=== PATIENT | male | born 1970 | race Caucasian/White ===

== ENCOUNTER → 2018-01-23 | Outpatient (CLI) | payer OTHER, SELFPAY ==
[2018-01-25 19:08] LABS: FREE TESTOSTERONE(DIRECT) 9.1 pg/mL (6.8-21.5); TESTOSTERONE, SERUM 879 ng/dL (264-916)
== END | disposition home or self-care (01) ==
LOC: LAB SHORT 17:34 → LAB 17:34
PROVIDERS: Hospitalist
DX: E11.3213 Type 2 diabetes mellitus with mild nonproliferative diabetic retinopathy with macular edema, bilateral (principal); E55.9 Vitamin D deficiency, unspecified; F52.21 Male erectile disorder; R53.83 Other fatigue
CPT/HCPCS: 82306; 82607; 83036; 84402; 84403

== ENCOUNTER 2022-04-06 09:42 | Inpatient (IN) | payer OTHER ==
[~2022-04-06] VITALS: Ht 180.3 cm; Wt 95.4 kg
[~2022-04-06 09:42] MED LIST: INSULANPEN SC; Metformin HCl500 MG PO; Novolog Fl100 UNIT/1 SC; SILDENAFIL20 MG PO
[2022-04-06 10:25] LABS: Base Excess Venous -27.5 mmol/L; Bicarbonate Venous 7.1 mmol/L (24.0-30.0); PCO2 Venous 24.6 mmHg (38-42); pH Blood Venous 6.92 (7.34-7.37)
[2022-04-06 10:25] LABS: BASOPHILS PERCENT AUTO 0 % (0-2); Hematocrit 41.3 % (37.0-53.0); Hemoglobin 13.4 g/dL (13.5-17.5); MONOCYTES PERCENT AUTO 10 % (4-13); Mean Corpuscular HGB 32.4 pg (26.0-34.0); Mean Corpuscular HGB Conc 32.4 g/dL (31.5-36.5); Mean Corpuscular Volume 100 fL (80-100); Mean Platelet Volume 10.4 fL (9.1-12.4); Platelet Count 309 K/mm3 (150-400); RDW Standard Deviation 44.7 fL (35.1-46.3); Red Blood Cell Count 4.13 M/mm3 (4.30-5.90)
[2022-04-06 11:06] LABS: Magnesium, Blood 2.8 mg/dL (1.6-2.4)
[2022-04-06 11:25] LABS: Influenza A, PCR NEGATIVE (NEGATIVE); Influenza B, PCR NEGATIVE (NEGATIVE); Resp Syncytial Virus, PCR NEGATIVE (NEGATIVE); SARS-Cov-2 (COVID-19) PCR, MMC NEGATIVE (NEGATIVE)
[2022-04-06 11:26] LABS: BASOPHILS ABSOLUTE AUTO 0.04 K/mm3 (0.00-0.23); EOSINOPHILS ABSOLUTE AUTO 0.01 K/mm3 (0.00-0.68); EOSINOPHILS PERCENT AUTO 0 % (0-6); IMMATURE GRAN ABSOLUTE AUTO 0.15 K/mm3 (0.00-0.10); IMMATURE GRAN PERCENT AUTO 1 % (0-1); LYMPHOCYTES ABSOLUTE AUTO 1.73 K/mm3 (0.84-5.20); LYMPHOCYTES PERCENT AUTO 8 % (21-46); MONOCYTES ABSOLUTE AUTO 2.39 K/mm3 (0.16-1.47); NEUTROPHILS ABSOLUTE AUTO 18.57 K/mm3 (1.96-9.15); NEUTROPHILS PERCENT AUTO 81 % (41-73)
[2022-04-06 11:27] LABS: Alanine Aminotransfer (ALT/SGP 32 U/L (12-78); Albumin, Blood 3.6 g/dL (3.4-5.0); Albumin/Globulin Ratio 1.1 (0.8-1.8); Alk Phos 138 U/L (50-136); Anion Gap 37 mmol/L (6-16); Aspartate Aminotrans (AST/SGOT 21 U/L (12-37); Bilirubin, Total 0.5 mg/dL (0.1-1.0); Blood Urea Nitrogen 64 mg/dL (8-24); Bun/Creatinine Ratio 22.3 (12.0-20.0); CO2, Blood 5 mmol/L (21-32); Calcium, Blood 7.9 mg/dL (8.5-10.1); Chloride, Blood 80 mmol/L (98-108); Creatinine, Blood 2.87 mg/dL (0.60-1.20); Globulin, Blood 3.3 g/dL (2.2-4.0); Glomerular Filtration Rate 25 (60-); Glucose, Blood 1040 mg/dL (70-99); Potassium, Blood 6.3 mmol/L (3.5-5.5); Sodium, Blood 122 mmol/L (136-145); Total Protein, Blood 6.9 g/dL (6.4-8.2)
[2022-04-06 11:47] LABS: Beta-hydroxybutyrate >138.0 mg/dL (0.2-2.8)
[2022-04-06 13:36] LABS: Glucose, Blood 914 mg/dL (70-99)
[2022-04-06 14:53] LABS: Glucose, Blood 768 mg/dL (70-99)
[2022-04-06 16:34] LABS: Glucose, Blood 660 mg/dL (70-99)
[2022-04-06 17:04] LABS: Bun/Creatinine Ratio 23.3 (12.0-20.0); Calcium, Blood 7.7 mg/dL (8.5-10.1); Creatinine, Blood 2.92 mg/dL (0.60-1.20); Potassium, Blood 4.8 mmol/L (3.5-5.5)
[2022-04-06 17:20] LABS: Source, Urine Clean Catch
[2022-04-06 17:27] LABS: Appearance, Urine Clear (Clear); Bilirubin, Urine Neg (Neg); Blood, Urine 2+ (Neg); Color, Urine Yellow (P-Yellow); Glucose Qualitative, Urine 4+ (Neg); Ketones, Urine 4+ (Neg); Leukocyte Esterase, Urine Neg (Neg); Nitrite, Urine Neg (Neg); Protein, Urine 1+ (Neg); Urobilinogen, Urine NORM (Normal)
[2022-04-06 17:31] LABS: Glucose, Blood 578 mg/dL (70-99)
[2022-04-06 17:43] LABS: U Amphetamine Screen Not Detected; U Barbituate Screen Not Detected; U Benzodiazapine Screen Not Detected; U Cannabinoids Screen Not Detected; U Cocaine Screen Not Detected; U Methadone Screen Not Detected; U Methamphetamine Screen Not Detected; U Opiates Screen Not Detected; U Phencyclidine Screen Not Detected
[2022-04-06 17:44] LABS: U Buprenorphine Screen Not Detected; U Oxycodone Screen Not Detected; U Propoxyphene Screen Not Detected
[2022-04-06 17:53] LABS: Bacteria Few /hpf; Squamous Epithelial Cells Few /hpf (Few)
--- NOTE | 2022-04-06 18:08 | NUR ---
SHIFT SUMMARY PT ARRIVED TO ICU ROOM 3 AT 14OO VIA ER BED. PT IS ALERT, ORIENTED, AND ANSWERS QUESTIONS APPROPRIATELY WHEN AWAKE. PT HAS BEEN RESTING QUIETLY THIS AFTERNOON, BUT REMAINS EASY TO AWAKEN. PT HAS DENIED PAIN, DISCOMFORT OR NAUSEA. VITAL SIGNS HAVE REMAINED STABLE. PT ON ROOM AIR. POWERGLIDE PLACED TO JOSEPH. INSULIN GTT INFUSING AT 3 UNITS/HR AT THIS TIME, AND NS AT 350 ML/HR. PT USED URINAL TO VOID THIS EVENING. PT SPOUSE AT BEDSIDE AT THIS TIME. WILL CONTINUE TO MONITOR AND REPORT OFF TO ONCOMING RN.
--- NOTE | 2022-04-06 19:00 | NUR ---
ASSUMED CARE PT ALERT AND TALKING WITH STAFF. DROWSY BUT AWAKENS EASILY TO VERBAL STIMULI. INSULIN GTT AT 3UNITS/HR. NS AT 350ML/HR. C/O OF SORE THROAT AND MINIMAL COUGH. VOIDING USING URINAL.
[2022-04-06 20:35] LABS: Bun/Creatinine Ratio 25.9 (12.0-20.0); Creatinine, Blood 2.47 mg/dL (0.60-1.20); Potassium, Blood 4.8 mmol/L (3.5-5.5)
[2022-04-07 01:34] LABS: Bun/Creatinine Ratio 29.7 (12.0-20.0); Calcium, Blood 7.7 mg/dL (8.5-10.1); Creatinine, Blood 1.95 mg/dL (0.60-1.20); Potassium, Blood 4.3 mmol/L (3.5-5.5)
--- NOTE | 2022-04-07 02:00 | NUR ---
CALL TO MD WARNER 254. CALL MADE TO DR RAMAN REGARDING CHANGING FLUIDS TO D5 1/2 NS. ORDER RECEIVED WITH RATE OF 125ML/HR.
--- NOTE | 2022-04-07 05:38 | NUR ---
SHIFT SUMMARY NO ACUTE EVENTS OVERNIGHT. PT SWITCHED TO D5 1/2NS 125ML/HR AT 0200. SEE PREVIOUS NOTE. ON RA WITH SPO2 GREATER THAN 92%. INSULIN GTT AT 4UNITS/HR WITH CBG 200-250. SEE FLOWSHEET FOR TITRATIONS. PT VOIDS IN URINAL. DID NOT GET OOB T/O SHIFT. VSS.
[2022-04-07 05:39] LABS: BASOPHILS ABSOLUTE AUTO 0.01 K/mm3 (0.00-0.23); BASOPHILS PERCENT AUTO 0 % (0-2); EOSINOPHILS PERCENT AUTO 0 % (0-6); Hematocrit 32.1 % (37.0-53.0); Hemoglobin 11.4 g/dL (13.5-17.5); IMMATURE GRAN ABSOLUTE AUTO 0.02 K/mm3 (0.00-0.10); IMMATURE GRAN PERCENT AUTO 0 % (0-1); LYMPHOCYTES ABSOLUTE AUTO 0.55 K/mm3 (0.84-5.20); LYMPHOCYTES PERCENT AUTO 6 % (21-46); MONOCYTES ABSOLUTE AUTO 0.94 K/mm3 (0.16-1.47); MONOCYTES PERCENT AUTO 10 % (4-13); Mean Corpuscular HGB Conc 35.5 g/dL (31.5-36.5); Mean Platelet Volume 10.2 fL (9.1-12.4); NEUTROPHILS ABSOLUTE AUTO 8.06 K/mm3 (1.96-9.15); NEUTROPHILS PERCENT AUTO 84 % (41-73); Platelet Count 212 K/mm3 (150-400); RDW Coefficient Variation 12.2 % (11.7-14.2); Red Blood Cell Count 3.56 M/mm3 (4.30-5.90); White Blood Cell Count 9.58 K/mm3 (4.00-11.30)
[2022-04-07 05:50] LABS: Mean Corpuscular Volume 90 fL (80-100)
[2022-04-07 05:59] LABS: Bun/Creatinine Ratio 32.5 (12.0-20.0); Creatinine, Blood 1.69 mg/dL (0.60-1.20); Potassium, Blood 4.1 mmol/L (3.5-5.5)
--- NOTE | 2022-04-07 17:04 | NUR ---
SHIFT SUMMARY NO ACUTE CHANGES THIS SHIFT. PT HAS REMAINED ALERT AND ORIENTED WHEN AWAKE. PT DENIES PAIN OR DISCOMFORT. PT TRANSITIONED OFF INSULIN GTT AND STARTED ON SLIDING SCALE INSULIN. PT TAKING IN PO INTAKE WELL. PT UP TO SHOWER THIS EVENING WITHOUT DIFFICULTY. PT HAS USED URINAL TO VOID THIS SHIFT. IV AND POWERGLIDE SALINE LOCKED. VITAL SIGNS STABLE. WILL CONTINUE TO MONITOR AND REPORT OFF TO ONCOMING RN.
--- NOTE | 2022-04-07 19:00 | NUR ---
ASSUMED CARE PT IN BED, EATING DINNER. ALERT AND TALKING WITH STAFF. DENIES ANY NEEDS AT THIS TIME. CALL LIGHT IN REACH.
[2022-04-08 04:17] LABS: Bun/Creatinine Ratio 31.7 (12.0-20.0); Calcium, Blood 7.9 mg/dL (8.5-10.1); Creatinine, Blood 1.04 mg/dL (0.60-1.20); Magnesium, Blood 2.5 mg/dL (1.6-2.4); Phosphorus, Blood 2.7 mg/dL (2.5-4.9); Potassium, Blood 4.3 mmol/L (3.5-5.5)
--- NOTE | 2022-04-08 06:38 | NUR ---
SHIFT SUMMARY PT CAME TO THE FLOOR AT 0610. INDEPENDENT. WENT TO THE BATHROOM. REQUESTED SOME QUIET AND DARK TO BE ABLE TO SLEEP. BED IN LOWEST POSITION AND CALL LIGHT IN REACH.
--- NOTE | 2022-04-08 07:30 | NUR ---
ASSUMED CARE: PT RESTING QUIETLY AT THIS TIME. DISASTER RECOVERY CONSULTANT AT BEDSIDE. NO ACUTE NEEDS OR CONCERNS AT THIS TIME.
[2022-04-08] MEDS ORDERED: FAMO40 PO (10:18)
[2022-04-08] MEDS ORDERED: CLOT10 MT (10:19)
--- NOTE | 2022-04-08 11:38 | NUR ---
PT GIVEN INSTRUCTIONS REGARDING DISCHARGE AND FOLLOW UP APPOINTMENTS. INSTRUCTED PT TO TAKE IT EASY FOR THE NEXT FEW DAYS AND CONTINUE TO REST. IV'S DC'D WNL. ESCORTED OUT VIA WHEEL CHAIR BY HOSPITAL STAFF. NO FURTHER NEEDS OR CONCERNS AT THIS TIME.
== END 2022-04-08 11:31 | disposition home or self-care (01) | DRG 637 ==
LOC: ER 09:42 → ICUW 12:37 → ICUE 14:09 → MEDS 04-08 06:10
PROVIDERS: Emergency Medicine; Nurse Practitioner Acute Care; ADMIT Internal Medicine
DX: E10.10 Type 1 diabetes mellitus with ketoacidosis without coma (principal); N17.0 Acute kidney failure with tubular necrosis; R65.10 Systemic inflammatory response syndrome (SIRS) of non-infectious origin without acute organ dysfunction; E87.5 Hyperkalemia; K21.9 Gastro-esophageal reflux disease without esophagitis; J02.9 Acute pharyngitis, unspecified; E86.0 Dehydration; I12.9 Hypertensive chronic kidney disease with stage 1 through stage 4 chronic kidney disease, or unspecified chronic kidney disease; E10.22 Type 1 diabetes mellitus with diabetic chronic kidney disease; N18.30 Chronic kidney disease, stage 3 unspecified; Z20.822 Contact with and (suspected) exposure to COVID-19; Z98.890 Other specified postprocedural states; Z79.4 Long term (current) use of insulin
CPT/HCPCS: 0241U; 36415; 80048; 80053; 81001; 82010; 82803; 82947; 83605; 83690; 83735; 84100; 85025; 93005; 93010; A9270; C1751; J1644; J1815; J2405; J7030; J7042; J7120

== ENCOUNTER → 2022-04-14 | Outpatient (CLI) | payer OTHER ==
[~2022-04-14] MED LIST changes: +CLOT10 MT; +FAMO40 PO
[2022-04-14 19:18] LABS: BASOPHILS ABSOLUTE AUTO 0.02 K/mm3 (0.00-0.23); BASOPHILS PERCENT AUTO 0 % (0-2); EOSINOPHILS ABSOLUTE AUTO 0.05 K/mm3 (0.00-0.68); EOSINOPHILS PERCENT AUTO 1 % (0-6); Hematocrit 40.1 % (37.0-53.0); Hemoglobin 13.9 g/dL (13.5-17.5); IMMATURE GRAN ABSOLUTE AUTO 0.02 K/mm3 (0.00-0.10); IMMATURE GRAN PERCENT AUTO 0 % (0-1); LYMPHOCYTES ABSOLUTE AUTO 2.04 K/mm3 (0.84-5.20); LYMPHOCYTES PERCENT AUTO 37 % (21-46); MONOCYTES PERCENT AUTO 14 % (4-13); Mean Corpuscular HGB Conc 34.7 g/dL (31.5-36.5); Mean Corpuscular Volume 92 fL (80-100); Mean Platelet Volume 9.7 fL (9.1-12.4); NEUTROPHILS ABSOLUTE AUTO 2.62 K/mm3 (1.96-9.15); NEUTROPHILS PERCENT AUTO 47 % (41-73); Platelet Count 360 K/mm3 (150-400); RDW Coefficient Variation 11.8 % (11.7-14.2); RDW Standard Deviation 39.4 fL (35.1-46.3); Red Blood Cell Count 4.35 M/mm3 (4.30-5.90); White Blood Cell Count 5.55 K/mm3 (4.00-11.30)
[2022-04-14 19:59] LABS: Albumin, Blood 3.6 g/dL (3.4-5.0); Albumin/Globulin Ratio 1.2 (0.8-1.8); Bilirubin, Total 0.4 mg/dL (0.1-1.0); Bun/Creatinine Ratio 23.6 (12.0-20.0); Calcium, Blood 9.2 mg/dL (8.5-10.1); Creatinine, Blood 0.93 mg/dL (0.60-1.20); Globulin, Blood 3.1 g/dL (2.2-4.0); Potassium, Blood 4.1 mmol/L (3.5-5.5); Total Protein, Blood 6.7 g/dL (6.4-8.2)
== END | disposition home or self-care (01) ==
LOC: LAB 19:14 → LAB SHORT 19:14
PROVIDERS: Physician Assistant
DX: R10.9 Unspecified abdominal pain (principal)
CPT/HCPCS: 80053; 83690; 85025

== ENCOUNTER 2022-04-28 08:29 | Day surgery (SDC) | payer OTHER ==
[~2022-04-28] VITALS: Ht 154.9 cm; Wt 91.4 kg
[~2022-04-28 08:29] MED LIST changes: -OMEP20ER; -PREG100; -Prinivil10 MG
[2022-04-28] MEDS ORDERED: OMEP20ER (08:52)
[2022-04-28] MEDS ORDERED: PREG100 (08:53)
[2022-04-28] MEDS ORDERED: Prinivil10 MG (08:53)
== END 2022-04-28 10:24 | disposition home or self-care (01) ==
LOC: ORSCSDS 08:29
PROVIDERS: Internal Medicine Gastroenterology
PROC: 0DJ08ZZ Inspection of Upper Intestinal Tract, Via Natural or Artificial Opening Endoscopic (ICD-10-PCS; principal; 2022-04-28 09:45)
DX: K21.00 Gastro-esophageal reflux disease with esophagitis, without bleeding (principal); I10 Essential (primary) hypertension; E11.9 Type 2 diabetes mellitus without complications; Z79.899 Other long term (current) drug therapy
CPT/HCPCS: 82947; J2704; J7120

== ENCOUNTER → 2022-04-28 | Outpatient (CLI) | payer OTHER ==
[~2022-04-28] MED LIST changes: +OMEP20ER; +PREG100; +Prinivil10 MG
[2022-04-28 16:50] LABS: Prostate Specific Antigen 0.762 ng/mL (0.000-4.000)
== END | disposition home or self-care (01) ==
LOC: LAB SHORT 12:05 → LAB 12:05
PROVIDERS: Hospitalist
DX: Z12.5 Encounter for screening for malignant neoplasm of prostate (principal); R39.12 Poor urinary stream
CPT/HCPCS: 87077; 87086; 87186; G0103

== ENCOUNTER → 2023-03-31 | Outpatient (CLI) | payer OTHER ==
[~2023-03-31] MED LIST changes: +OMEP20ER; +PREG100; +Prinivil10 MG
[2023-03-31 18:10] LABS: Anion Gap 8 mmol/L (6-16); Blood Urea Nitrogen 18 mg/dL (8-24); CHOL/HDL RATIO 2.9; CO2, Blood 24 mmol/L (21-32); Calcium, Blood 8.9 mg/dL (8.5-10.1); Chloride, Blood 106 mmol/L (98-108); Cholesterol 160 mg/dL (50-200); Glucose, Blood 135 mg/dL (70-99); HDL Cholesterol 55 mg/dL (>39); LDL/HDL RATIO 1.7; Low Density Lipoprotein Chol 92 mg/dL (0-110); Potassium, Blood 4.3 mmol/L (3.5-5.5); Sodium, Blood 138 mmol/L (136-145); Triglycerides 65 mg/dL (30-160); Very Low Density Lipoprot Chol 13 mg/dL (6-32)
[2023-03-31 18:28] LABS: Bun/Creatinine Ratio 15.8 (12.0-20.0); Creatinine, Blood 1.14 mg/dL (0.60-1.20); Glomerular Filtration Rate 76 (60-)
== END ==
LOC: LAB SHORT 15:08 → LAB 15:08
PROVIDERS: Hospitalist
DX: E11.3593 Type 2 diabetes mellitus with proliferative diabetic retinopathy without macular edema, bilateral (principal)
CPT/HCPCS: 80048; 80061

== ENCOUNTER → 2024-04-03 | Outpatient (CLI) | payer OTHER ==
[2024-04-03 15:53] LABS: Microalb/Creat Ratio UR, Rand Unable to Calculate mg/g (0.000-30.000); Microalbumin, Random Urine <5.000 mg/L (0.000-20.000)
== END ==
LOC: LAB 09:58 → LAB SHORT 09:58
PROVIDERS: Hospitalist
DX: E11.3593 Type 2 diabetes mellitus with proliferative diabetic retinopathy without macular edema, bilateral (principal)
CPT/HCPCS: 82043; 82570